=== PATIENT | male | born 1960 | race Caucasian/White ===

== ENCOUNTER → 2017-12-05 | Outpatient (CLI) | payer BC ==
--- NOTE | 2017-12-05 13:20 | XR ---
EXAMINATION TYPE: XR chest 2V DATE OF EXAM: 12/05/2017 COMPARISON: 06/22/2011 TECHNIQUE: PA and lateral views submitted. HISTORY: Productive cough FINDINGS: The lungs are clear and there is no pneumothorax, pleural effusion, or focal pneumonia. Hyperinflat ion noted. Mild hypertrophic change of the spine. No overt failure. IMPRESSION: 1. No acute process.
== END | disposition home or self-care (01) ==
LOC: RADXRYALE 13:01
PROVIDERS: ATTEND Internal Medicine
DX: J20.9 Acute bronchitis, unspecified (principal)
CPT/HCPCS: 71046

== ENCOUNTER → 2018-07-29 | Outpatient (CLI) | payer BC ==
--- NOTE | 2018-07-29 12:20 | XR ---
EXAMINATION TYPE: XR chest 2V DATE OF EXAM: 07/29/2018 COMPARISON: 12/05/2017 TECHNIQUE: PA and lateral views submitted. HISTORY: Routine physical FINDINGS: The lungs are clear and there is no pneumothorax, pleural effusion, or focal pneumonia. Mild hyperi nflation. No overt failure. IMPRESSION: 1. No acute process. Correlate for COPD
== END | disposition home or self-care (01) ==
LOC: RADXRYALE 11:49
PROVIDERS: ATTEND Internal Medicine
DX: R05 Cough (principal)
CPT/HCPCS: 71046

== ENCOUNTER 2021-12-18 18:34 | Observation (INO) | payer BC ==
[2021-12-18 19:13] LABS: Basophils % (A) 1 %; Eosinophils # (A) 0.3 k/uL (0-0.7); Eosinophils % (A) 3 %; HCT 43.4 % (39.0-53.0); HGB 14.6 gm/dL (13.0-17.5); Lymphocytes # (A) 2.7 k/uL (1.0-4.8); Lymphocytes % (A) 37 %; MCH 31.8 pg (25.0-35.0); MCHC 33.7 g/dL (31.0-37.0); MCV 94.3 fL (80.0-100.0); Mean Platelet Volume 7.8; Monocytes # (A) 0.4 k/uL (0-1.0); Monocytes % (A) 6 %; Neutrophils # (A) 3.7 k/uL (1.3-7.7); Neutrophils % (A) 51 %; Platelet Count 232 k/uL (150-450); RDW 12.2 % (11.5-15.5); WBC 7.3 k/uL (3.8-10.6)
[2021-12-18 19:23] LABS: Partial Thromboplastin Time 25.6 sec (22.0-30.0); Prothrombin Time 10.4 sec (9.0-12.0)
[2021-12-18 19:24] LABS: ALT 34 U/L (4-49); AST 41 U/L (17-59); African American GFR (CKD) >90 (>60 ml/min/1.73 sqM); Albumin 4.5 g/dL (3.5-5.0); Alkaline Phosphatase 74 U/L (38-126); Anion Gap 12 mmol/L; Blood Urea Nitrogen 16 mg/dL (9-20); Calcium 9.4 mg/dL (8.4-10.2); Carbon Dioxide 24 mmol/L (22-30); Chloride 104 mmol/L (98-107); Glucose 81 mg/dL (74-99); Magnesium 1.9 mg/dL (1.6-2.3); Non-African American GFR(CKD) 79 (>60 ml/min/1.73 sqM); Potassium 4.2 mmol/L (3.5-5.1); Sodium 140 mmol/L (137-145); Total Bilirubin 0.9 mg/dL (0.2-1.3); Total Protein 6.9 g/dL (6.3-8.2)
--- NOTE | 2021-12-18 19:54 | ED ---
Chest Pain HPI - General Chief Complaint: Chest Pain Stated Complaint: chest pain Time Seen by Provider: 12/18/21 19:38 Source: patient Mode of arrival: wheelchair Limitations: no limitations - History of Present Illness Initial Comments: This is a pleasant 61-year-old male who is a previous cigarette smoker, quitting many years ago. Patient presents to the emergency department today complaining of recurrent chest pain which he has had for what he states is years. He states that once a month he will get cramping tight feeling in his chest which radiates to his jaw. It lasts for about 20 minutes, unrelated to activity. No diaphoresis. No nausea, no shortness of breath. States it then seems to resolve on its own after he takes "3 or 4 aspirin. "Patient went to his primary care physician today for a general examination and informed the physician about this. For this reason he was sent here. Apparently she was concerned about the EKG done in the office. Patient has no chest pain currently. Patient states he did take 4 baby aspirin today prior to arrival. No headache, no fever or chills, no changes in vision or hearing, no sore throat or difficulty with speech, no neck pain, no shortness of breath, no abdominal pain, no nausea or vomiting, no changes in urination or bowel movements, no numbness or tingling, no extremity pain, no skin rashes or lesions. Past medical, surgical, social, and family history reviewed. Patient has not smoked cigarettes for years. Has a sister with a history of atrial fibrillation. Patient had a cardiac stress test about 10 years ago which was normal. No subsequent cardiac testing. - Related Data Allergies Allergy/AdvReac Type Severity Reaction Status Date / Time No Known Allergies Allergy Verified 12/18/21 18:41 Review of Systems ROS Statement: Those systems with pertinent positive or pertinent negative responses have been documented in the HPI. ROS Other: All systems not noted in ROS Statement are negative. EKG Findings - EKG Comments: EKG Findings:: EKG done at 1843 and by the ED attending physician reveals sinus rhythm with a rate of 64. Normal intervals. Normal axis. Normal QRS morphology. Poor R-wave progression. No evidence of acute ST or T-wave changes. No comparison study Past Medical History Past Medical History: No Reported History History of Any Multi-Drug Resistant Organisms: None Reported Additional Past Surgical History / Comment(s): nasal surgery Past Psychological History: No Psychological Hx Reported Smoking Status: Former smoker Past Alcohol Use History: Occasional Past Drug Use History: None Reported General Exam Limitations: no limitations General appearance: alert, in no apparent distress Head exam: Present: atraumatic, normocephalic, normal inspection Eye exam: Present: normal appearance, PERRL, EOMI. Absent: scleral icterus, conjunctival injection, periorbital swelling ENT exam: Present: normal exam, mucous membranes moist, normal external ear exam Neck exam: Present: normal inspection, full ROM. Absent: tenderness, meningismus, lymphadenopathy Respiratory exam: Present: normal lung sounds bilaterally. Absent: respiratory distress, wheezes, rales, rhonchi, stridor Cardiovascular Exam: Present: regular rate, normal rhythm, normal heart sounds. Absent: systolic murmur, diastolic murmur, rubs, gallop, clicks GI/Abdominal exam: Present: soft, normal bowel sounds. Absent: distended, tenderness, guarding, rebound, rigid Extremities exam: Present: normal inspection, full ROM, normal capillary refill. Absent: tenderness, pedal edema, joint swelling, calf tenderness Back exam: Present: normal inspection Neurological exam: Present: alert, oriented X3, CN II-XII intact Psychiatric exam: Present: normal affect, normal mood Skin exam: Present: warm, dry, intact, normal color. Absent: rash Course Vital Signs 12/18/21 12/18/21 18:38 18:41 Temperature 98.0 F 98.3 F Pulse Rate 64 60 Respiratory 20 17 Rate Blood Pressure 133/91 133/91 O2 Sat by Pulse 99 95 Oximetry - Reevaluation(s) Reevaluation #1: 12/18/21 20:49 Medical record is reviewed Asymptomatic Patient is informed of results and questions answered Patient in no distress Chest Pain MDM - Differential Diagnosis AMI, ACS, GERD, Esophageal Spasm - [facility] Heart score is 5. Patient asymptomatic at this point. Differential diagnosis includes gastrointestinal versus cardiac versus respiratory. However given the patient's chest pain radiating to the jaw lasting 20 minutes. Possibly of cardiac etiology is high. Possibly Prinzmetal's angina. Anxiety also within the differential. Patient will be admitted for cardiac rule out and cardiology consultation. Heart score is 5, discussed case with ED attending physician, Dr. Gayle The case was discussed in detail with ED attending physician. Presentation, findings, treatment plan discussed in detail. Scuffs with the admitting physician from [facility], Dr. Harper Admitted for chest pain rule out and cardiology consultation Disposition Clinical Impression: Chest pain Disposition: ADMITTED IP TO THIS HOSP Condition: Good Is patient prescribed a controlled substance at d/c from ED?: No Referrals: Myra Gupta MD [Primary Care Provider] - 1-2 days Time of Disposition: 19:54 Decision to Admit Reason: Admit from EC Decision Time: 19:54
[2021-12-18] MEDS ORDERED: ONDANSETRON 4 MG/2 ML VIAL IVP PRN (20:47)
[2021-12-18] MEDS ORDERED: ACETAMINOPHEN TAB 325 MG TAB PO PRN (20:47)
[2021-12-18] MEDS ORDERED: NALOXONE 0.4 MG/ML 1 ML VIAL IV PRN (20:47)
--- NOTE | 2021-12-18 21:06 | XR ---
EXAMINATION TYPE: XR chest 1V DATE OF EXAM: 12/18/2021 COMPARISON: 07/29/2018 HISTORY: Chest pain TECHNIQUE: Single view FINDINGS: Heart is normal. Lungs are clear of infiltrate. No heart failure. There are no hilar masses . There are chest leads. Bony thorax is intact. IMPRESSION: No active cardiopulmonary disease. Normal heart. No change.
[2021-12-19] MEDS ORDERED: ATORVASTATIN 80 MG TAB PO SCH (00:15)
--- NOTE | 2021-12-19 00:16 | P.HPIM ---
History of Present Illness H&P Date: 12/18/21 The patient is a 61-year-old male with no known PMH who presents to the emergency room with complaints of intermittent chest discomfort. Patient reports that over the past several years, he has been experiencing nearly once monthly substernal chest discomfort. No clear inciting factors noted, with pain 5 out of 10 on maximal intensity, radiating up to the right jaw, without associated symptoms, lasting for up to an hour at a time and then resolving spontaneously. Patient does occasionally use aspirin to alleviate his symptoms. The patient reports that he had his last episode yesterday evening prior to going to bed at this time he took multiple 81 mg aspirins which did alleviate her symptoms. He was seen at his PMDs office earlier today when an EKG was done and was reportedly abnormal and the patient was sent to the emergency room. Patient reports feeling his baseline at the time of interview. He denied any history of smoking. Does not have a history of type II DM, hypertension, or hyperlipidemia. Denied any family history of premature coronary artery disease. EKG in the emergency room revealed sinus rhythm with no ST-T wave changes noted as reviewed by me. Chest x-ray was unremarkable. Laboratory evaluation was also unremarkable with troponin less than 0.012. Review of systems: Pertinent positives and negatives as discussed in HPI, a complete review of systems was performed and all other systems are negative. Physical examination: General: non toxic, no distress, appears at stated age, obese Derm: no unusual rashes/lesions, warm Head: atraumatic, normocephalic, symmetric Eyes: EOMI, no lid lag, anicteric sclera, pupils equal round reactive to light ENT: Nose and ears atraumatic Neck: No cervical lymphadenopathy, trachea midline, supple Mouth: no lip lesion, mucus membranes moist Cardiovascular: S1S2 reg, no murmur, positive dorsalis pedis pulse bilateral, no edema Lungs: CTA bilateral, no rhonchi, no rales, no accessory muscle use Abdominal: soft, nontender to palpation, no guarding Ext: muscle strength 5 out of 5 in all 4 extremities grossly, no gross muscle atrophy, no contractures, Neuro: CN II-XI grossly intact, no gross focal neuro deficits Psych: Alert, oriented, appropriate affect Assessment/plan Chest pain with typical features -Cardiac monitoring -Trend troponin -Cardiology consult DVT prophylaxis -Heparin subcu The patient is admitted with an anticipated [] than 2 midnight stay for evaluation of []. CODE STATUS: Full Code Discussed with: Patient Anticipated discharge date: [] Anticipated discharge place: Home Past Medical History Past Medical History: No Reported History History of Any Multi-Drug Resistant Organisms: None Reported Additional Past Surgical History / Comment(s): nasal surgery Past Psychological History: No Psychological Hx Reported Smoking Status: Former smoker Past Alcohol Use History: Occasional Past Drug Use History: None Reported - Past Family History Mother Family Medical History: Hypertension Medications and Allergies Home Medications Medication Instructions Recorded Confirmed Type Cetirizine HCl [Zyrtec] 10 mg PO DAILY 12/18/21 12/18/21 History Fluticasone Nasal [place] [Flonase 1 spray EA NOSTRIL DAILY 12/18/21 12/18/21 History Nasal [place]] Allergies Allergy/AdvReac Type Severity Reaction Status Date / Time No Known Allergies Allergy Verified 12/18/21 20:56 Physical Exam Vitals: Vital Signs Temp Pulse Resp BP Pulse Ox 12/18/21 18:41 98.3 F 60 17 133/91 95 12/18/21 18:38 98.0 F 64 20 133/91 99 Intake and Output 12/18/21 12/18/21 12/19/21 14:59 22:59 06:59 Other: Weight 126.552 kg Results CBC & Chem 7: 12/18/21 19:03 12/18/21 19:03
[2021-12-19] MEDS ORDERED: ASPIRIN 325 MG TAB PO ONE (00:40)
[2021-12-19] MEDS: HEPARIN SODIUM,PORCINE/PF 5,000 UNIT/0.5 ML SYRINGE SQ SCH ×2 (01:25→07:24)
[2021-12-19 05:29] LABS: Basophils # (A) 0.1 k/uL (0-0.2); Basophils % (A) 1 %; Eosinophils # (A) 0.2 k/uL (0-0.7); Eosinophils % (A) 4 %; HCT 45.7 % (39.0-53.0); HGB 15.4 gm/dL (13.0-17.5); Lymphocytes # (A) 2.2 k/uL (1.0-4.8); Lymphocytes % (A) 35 %; MCH 32.3 pg (25.0-35.0); MCHC 33.7 g/dL (31.0-37.0); MCV 95.7 fL (80.0-100.0); Mean Platelet Volume 7.8; Monocytes # (A) 0.3 k/uL (0-1.0); Monocytes % (A) 5 %; Neutrophils # (A) 3.2 k/uL (1.3-7.7); Neutrophils % (A) 53 %; Platelet Count 228 k/uL (150-450); RBC 4.77 m/uL (4.30-5.90); WBC 6.1 k/uL (3.8-10.6)
[2021-12-19 06:08] LABS: African American GFR (CKD) >90 (>60 ml/min/1.73 sqM); Anion Gap 9 mmol/L; Blood Urea Nitrogen 15 mg/dL (9-20); Calcium 9.4 mg/dL (8.4-10.2); Carbon Dioxide 27 mmol/L (22-30); Chloride 105 mmol/L (98-107); Glucose 104 mg/dL (74-99); Magnesium 1.9 mg/dL (1.6-2.3); Non-African American GFR(CKD) 86 (>60 ml/min/1.73 sqM); Potassium 4.5 mmol/L (3.5-5.1); Sodium 141 mmol/L (137-145)
[2021-12-19 08:59] VITALS: RESP 20; TEMP 97.9
--- NOTE | 2021-12-19 10:14 | P.CRDCN ---
History of Present Illness History of present illness: HISTORY OF PRESENT ILLNESS: This is a 61-year-old male with a past medical history significant for seasonal allergies. Patient doesn't follow with a mate ship. We have been asked to see the patient in consultation for chest pain. Patient examined at the bedside. Patient states he was directed to come to the emergency room by his primary care physician secondary to chest pain. Patient reports he has been having chest pain for the past 15 years. He states he has the pain about once every other month. He states it is a sharp pain in the middle of his chest and lasted for about 20 minutes. He denies any shortness of breath. He states sometimes it does radiate into his jaw. He states the pain is not exertional and can happen when he is just relaxed and sitting there. He denies any palpitations. He states he usually takes a couple aspirin with a glass of water and his pain resolves. Patient reports that he had a cardiac evaluation about 10 years ago and was told everything is normal. * EKG reveals sinus mechanism with no signs of acute ischemia * Chest xray negative for acute process * Laboratory data: W BC 6.1. Hemoglobin 15.4. Platelet count 228. Sodium 141. Potassium 4.5. BUN 15. Creatinine 0.97. Magnesium 1.9. Troponin negative 3. * Current home cardiac medications include none REVIEW OF SYSTEMS: At the time of my exam: CONSTITUTIONAL: Denies fever or chills. HEENT: Denies blurred vision, vision changes, or eye pain. Denies hemoptysis CARDIOVASCULAR: Denies chest pain. Denies orthopnea. Denies PND. Denies palpitations RESPIRATORY: Denies shortness of breath. GASTROINTESTINAL: Denies abdominal pain. Denies nausea or vomiting. HEMATOLOGIC: Denies bleeding disorders. GENITOURINARY: Denies any blood in urine. SKIN: Denies pruitis. Denies rash. PHYSICAL EXAM: VITAL SIGNS: Reviewed. GENERAL: Well-developed in no acute distress. HEENT: Head is normocephalic. Pupils are equal, round. Sclerae anicteric. Mucous membranes of the mouth are moist. Neck supple. No JVD or thyromegaly LUNGS: Respirations even and unlabored. Lungs essentially clear to auscultation bilaterally. HEART: Regular rate and rhythm. S1 and S2 heard. ABDOMEN: Soft. Nondistended. Nontender. EXTREMITIES: Normal range of motion. No clubbing or cyanosis. Peripheral pulses intact. No lower extremity edema NEUROLOGIC: Awake and alert. Oriented x 3. ASSESSMENT: Chest pain, atypical, troponin negative 3 History of seasonal allergies PLAN: An acute coronary has been ruled out Obtain 2-D echo to assess cardiac structure and function Obtain lipid panel and hemoglobin A1c Patient to undergo stress echocardiogram today to assess for ischemia. If negative, the patient may be discharged home from a cardiac standpoint Nurse practitioner note has been reviewed by physician. Signing provider agrees with the documented findings, assessment, and plan of care. Past Medical History Past Medical History: No Reported History History of Any Multi-Drug Resistant Organisms: None Reported Additional Past Surgical History / Comment(s): nasal surgery Past Psychological History: No Psychological Hx Reported Smoking Status: Former smoker Past Alcohol Use History: Occasional Past Drug Use History: None Reported - Past Family History Mother Family Medical History: Hypertension Medications and Allergies Home Medications Medication Instructions Recorded Confirmed Type Cetirizine HCl [Zyrtec] 10 mg PO DAILY 12/18/21 12/18/21 History Fluticasone Nasal [place] [Flonase 1 spray EA NOSTRIL DAILY 12/18/21 12/18/21 History Nasal [place]] Allergies Allergy/AdvReac Type Severity Reaction Status Date / Time No Known Allergies Allergy Verified 12/18/21 20:56 Physical Exam Vitals: Vital Signs Temp Pulse Resp BP Pulse Ox 12/19/21 06:00 68 117/99 12/19/21 05:00 63 110/76 12/19/21 00:00 64 115/77 12/18/21 22:00 62 122/85 12/18/21 18:41 98.3 F 60 17 133/91 95 12/18/21 18:38 98.0 F 64 20 133/91 99 Intake and Output 12/18/21 12/19/21 12/19/21 22:59 06:59 14:59 Other: Weight 126.552 kg Results 12/19/21 05:05 12/19/21 05:05 Cardiac Enzymes 12/18/21 12/18/21 12/19/21 Range/Units 19:03 19:03 02:14 AST 41 (17-59) U/L Troponin I <0.012 <0.012 (0.000-0.034) ng/mL 12/19/21 Range/Units 05:05 AST (17-59) U/L Troponin I <0.012 (0.000-0.034) ng/mL Coagulation 12/18/21 Range/Units 19:03 PT 10.4 (9.0-12.0) sec APTT 25.6 (22.0-30.0) sec CBC 12/18/21 12/19/21 Range/Units 19:03 05:05 WBC 7.3 6.1 (3.8-10.6) k/uL RBC 4.60 4.77 (4.30-5.90) m/uL Hgb 14.6 15.4 (13.0-17.5) gm/dL Hct 43.4 45.7 (39.0-53.0) % Plt Count 232 228 (150-450) k/uL Comprehensive Metabolic Panel 12/18/21 12/19/21 Range/Units 19:03 05:05 Sodium 140 141 (137-145) mmol/L Potassium 4.2 4.5 (3.5-5.1) mmol/L Chloride 104 105 (98-107) mmol/L Carbon Dioxide 24 27 (22-30) mmol/L BUN 16 15 (9-20) mg/dL Creatinine 1.04 0.97 (0.66-1.25) mg/dL Glucose 81 104 H (74-99) mg/dL Calcium 9.4 9.4 (8.4-10.2) mg/dL AST 41 (17-59) U/L ALT 34 (4-49) U/L Alkaline Phosphatase 74 (38-126) U/L Total Protein 6.9 (6.3-8.2) g/dL Albumin 4.5 (3.5-5.0) g/dL Current Medications Generic Name Dose Route Start Last Admin Trade Name Freq PRN Reason Stop Dose Admin Acetaminophen 650 mg 12/18/21 20:47 Acetaminophen Tab 325 Mg Tab PO Q6HR PRN Mild Pain or Fever > 100.5 Atorvastatin Calcium 80 mg 12/19/21 00:15 12/19/21 01:32 Atorvastatin 80 Mg Tab PO Not Given HS PETERSON Heparin Sodium (Porcine) 5,000 unit 12/19/21 00:00 12/19/21 07:24 Heparin Sodium,Porcine/Pf 5,000 Unit/0.5 Ml Syringe SQ Not Given Q8HR PETERSON Naloxone HCl 0.2 mg 12/18/21 20:47 Naloxone 0.4 Mg/Ml 1 Ml Vial IV Q2M PRN Opioid Reversal Ondansetron HCl 4 mg 12/18/21 20:47 Ondansetron 4 Mg/2 Ml Vial IVP Q8HR PRN Nausea And Vomiting Intake and Output 12/18/21 12/19/21 12/19/21 22:59 06:59 14:59 Other: Weight 126.552 kg 12/19/21 05:05 12/19/21 05:05
[2021-12-19 12:51] VITALS: BP 97/46; PULSE 63
--- NOTE | 2021-12-19 13:04 | CA ---
Stress Echo Report Bandar Moraes Age: 61 Gender: M : 1960 Exam Date: 12/19/2021 11:37 Exam Location: [facility] Ht (in): 74 Wt (lb): 279 Ordering Physician: Anastasia Bravo Referring Physician: [id number]pper: Joceline Lira RDCS Technologist Procedure CPT: Indication: CP ICD-9 Codes: Rhythm: Patient History: Chest Pain Cardiac Medications: Medications in past 24 hours: Contrast: Stress Results Protocol: Onur Total dose(mL): Exercise Duration (min:sec): Max ST Depression (mm): Angina Score: Rodriguez Score: METS: 7.7 Resting HR: 79 Resting BP: 117 / 88 Peak HR: 156 Peak BP: 197 / 88 Max Predicted HR: 161 97 % Max Predicted HR Target HR: 137 Double Product: 15875 Stress Summary: BP Response: Reason for Termination: Reached target heart rate or work-load Cardiac Symptoms: Test terminated after reaching target heart rate (85% max predicted) ECG Analysis Resting ECG: Stress ECG: Arrhythmia: Echo Analysis Resting Echo: Peak Echo Analysis: MEASUREMENTS (Male/Female) Normal Values CONCLUSIONS Patient underwent exercise stress echo with a Onur protocol treadmill stress test. Patient exercised into Stage 2 for a total of 6 minutes 46 seconds reaching a total of 7.7 METS. Patient's maximum heart rate was 156 which represented 98 % age- predicted maximum heart rate. Stress EKG portion: At baseline patient's EKG showed normal sinus rhythm, normal axis, no significant ST-T wave abnormalities. At peak exercise, EKG showed rare PVCs, nonspecific 0.[address] depressions in the inferior and lateral leads. Stress echo portion: 2-D echocardiogram was performed in the parasternal long, personal short, apical 2 and apical four-chamber views at rest, peak exercise and in recovery. At baseline, echocardiogram showed left ventricular ejection fraction 55 % without wall motion abnormalities. With peak exercise, echocardiogram shows improvement in left ventricular ejection fraction, increase contractility, decrease in left ventricular end systolic dimension without wall motion abnormalities consistent with a normal response to exercise. Conclusions: 1. Normal EKG and echo response to exercise without evidence of inducible ischemia. 2. Good exercise capacity. 3. Normal left ventricular EF 55% Dr. Hayden Dumont DO (Electronically Signed) Final Date: 19 December 2021 13:03
[2021-12-19 15:16] LABS: Chol/HDL Ratio 4.18 Ratio; LDL Cholesterol,Calculated 102.2 mg/dL (0.0-131.0)
--- NOTE | 2021-12-19 16:56 | P.DS ---
Providers Date of admission: 12/19/21 00:26 Expected date of discharge: 12/19/21 Attending physician: Maribeth Harper MD Consults: 12/18/21 20:47 Consult Physician Urgent Consulting Provider: Leeann Dudley Consult Reason/Comments: chest pain Do you want consulting provider notified?: Yes Primary care physician: Myra Gupta [place] Hospital Course: Discharge Diagnosis: Chest pain, acute coronary event ruled out Hospital Course: Patient is a very pleasant 61-year-old male with no reported past medical history. He presented to the emergency department with a chief complaint of intermittent chest discomfort. Patient reported that over the past several years he has been experiencing intermittent chest pain/discomfort that typically presents while at rest. Patient reports this pain appears approximately 1 month and is best described as being a discomfort to his midsternal chest that radiates into his back. Patient denies any other accompanying symptoms including headache, lightheadedness, dizziness, palpitations, shortness of breath or experiencing any numbness/tingling/weakness/swelling in his extremities. Patient underwent evaluation in the emergency department. An EKG was completed revealing normal sinus rhythm at 64 bpm with no noted T wave or ST abnormality showing no signs of acute ischemia. CBC, CMP, and troponin were all unremarkable. Chest x-ray was negative for acute cardiopulmonary process. Patient was admitted under our services with consultation to cardiology. Troponins were trended and all negative at less than 0.0123 draws. Patient underwent an echocardiogram that is currently pending and a stress echo was completed. Stress echocardiogram revealing normal EKG and echo response to exercise without any evidence of inducible ischemia, good exercise capacity, and normal EF of 55%. Cardiology clearing patient from cardiac perspective for outpatient follow-up in their office. Patient is medically stable at this time and currently free from any chest pain or complaints. Patient instructed that he may follow up outpatient with cardiology in their office to follow up complete echocardiogram results as they're currently still pending. Vital signs are stable at this time and patient free from any current complaints. Hemoglobin A1c 5.2% and lipid profile unremarkable with the exception of low HDL of 37.80. Patient to follow up outpatient with PCP in 1-2 days and with cardiology in 1 week. Patient seen and examined at bedside. Vital signs reviewed and stable. General: Nontoxic, no distress and appears stated age. Derm: Skin warm and dry, normal coloration for ethnicity. Head: Atraumatic, normocephalic and symmetric. Eyes: EOMs intact, no lid lag, and anicteric sclera Mouth: no lip lesions, mucus membranes moist Cardiovascular: regular rate and rhythm with normal S1S2, no murmur, positive posterior tibial pulses bilaterally, and cap refill < 2 seconds. Lungs: Respirations even, regular, and unlabored on room air. Lungs CTA bilaterally, no rhonchi, no rales, no wheezing, and no accessory muscle usage. Abdominal: soft, nontender to palpation, no guarding, no appreciable organomegaly Ext: ROM intact. No gross muscle atrophy, no edema, no contractures Neuro: Speech clear, face symmetrical and CN II-XII grossly intact with no noted focal neuro deficits Psych: Alert and oriented to person, place, time, and situation. Appropriate and pleasant affect. A total of 31 minutes of time were spent preparing this complex discharge summary. Pt was discharged on 12/19/21 at 2:19 PM. Patient Condition at Discharge: Stable Plan - Discharge Summary Discharge Rx Participant: No New Discharge Prescriptions: Continue Cetirizine HCl [Zyrtec] 10 mg PO DAILY Fluticasone Nasal [place] [Flonase Nasal [place]] 1 spray EA NOSTRIL DAILY Discharge Medication List Cetirizine HCl [Zyrtec] 10 mg PO DAILY 12/18/21 [History] Fluticasone Nasal [place] [Flonase Nasal [place]] 1 spray EA NOSTRIL DAILY 12/18/21 [History] Follow up Appointment(s)/Referral(s): Hayden Dumont DO [STAFF PHYSICIAN] - 1 Week (call office when open to make follow up appointment) Myra Gupta MD [Primary Care Provider] - 1-2 days (call office when open to make follow up appointment) Patient Instructions/Handouts: Chest Pain (DC), Heart Healthy Diet (DC), Chest Wall Pain (GEN) Activity/Diet/Wound Care/Special Instructions: Activity: As tolerated. Take breaks as needed. Diet: Heart healthy and carb consistent diet. Avoid salts, or foods with hidden salts such as canned or boxed foods and frozen dinners. Extra salt makes your heart work harder and traps the fluid in your body for longer. Special Instructions: Take all of your medications as directed and remember to keep all of your doctor's appointments and follow-up as needed. Thank you for allowing us to participate in your care, it was truly a pleasure having you for our patient!!! Discharge Disposition: HOME SELF-CARE
--- NOTE | 2021-12-20 11:07 | CA ---
Transthoracic Echo Report Name: Bandar Moraes Age: 61 Gender: M : 1960 Exam Date: 12/19/2021 13:35 Exam Location: [facility] Ht (in): 74 Wt (lb): 279 Ordering Physician: Anastasia Bravo Attending/Referring Phys: [id number], [facility] [employer] Counselor Joceline Lira RDCS Procedure CPT: Indications: LV function Cardiac Hx: Technical Quality: Good Contrast 1: Total Dose (mL): Contrast 2: Total Dose (mL): MEASUREMENTS (Male / Female) Normal Values 2D ECHO LV Diastolic Diameter PLAX 5.3 cm 4.2 - 5.9 / 3.9 - 5.3 cm LV Systolic Diameter PLAX 4.0 cm IVS Diastolic Thickness 1.0 cm 0.6 - 1.0 / 0.6 - 0.9 cm LVPW Diastolic Thickness 1.3 cm 0.6 - 1.0 / 0.6 - 0.9 cm LV Relative Wall Thickness 0.4 RV Internal Dim ED PLAX 3.1 cm LV Diastolic Volume MOD BP 79.4 cm??? 67 - 155 / 56 - 104 cm??? LV Systolic Volume MOD BP 42.5 cm??? 22 - 58 / 19 - 49 cm??? LV Ejection Fraction MOD BP 46.5 % >= 55 % LV Diastolic Volume MOD 4C 67.4 cm??? LV Systolic Volume MOD 4C 45.9 cm??? LV Ejection Fraction MOD 4C 32.0 % LV Diastolic Length 4C 8.2 cm LV Systolic Length 4C 7.9 cm LV Diastolic Volume MOD 2C 83.8 cm??? LV Systolic Volume MOD 2C 39.4 cm??? LV Ejection Fraction MOD 2C 53.0 % LV Diastolic Length 2C 9.2 cm LV Systolic Length 2C 7.9 cm LA Volume 38.2 cm??? 18 - 58 / 22 - 52 cm??? M-MODE Aortic Root Diameter MM 3.4 cm LA Systolic Diameter MM 3.2 cm LA Ao Ratio MM 0.9 MV E Point Septal Separation 1.0 cm AV Cusp Separation MM 2.0 cm DOPPLER AV Peak Velocity 106.0 cm/s AV Peak Gradient 4.5 mmHg MV Area PHT 3.5 cm??? MR Peak Velocity 99.9 cm/s MR Peak Gradient 4.0 mmHg Mitral E Point Velocity 51.2 cm/s Mitral A Point Velocity 55.5 cm/s Mitral E to A Ratio 0.9 MV Deceleration Time 214.4 ms MV E' Velocity 6.2 cm/s Mitral E to MV E' Ratio 8.2 TR Peak Velocity 132.4 cm/s TR Peak Gradient 7.0 mmHg Right Ventricular Systolic Press 11.7 mmHg FINDINGS Left Ventricle Left ventricular ejection fraction is estimated at 55 %. Left ventricular cavity size normal. Left ventricular wall thickness normal. Right Ventricle The right ventricle is normal in size and function. Right Atrium The right atrium is normal in size. Left Atrium The left atrium is normal in size. Mitral Valve Structurally normal mitral valve without significant stenosis or prolapse. There is trace mitral regurgitation. Aortic Valve Structurally normal aortic valve without significant sclerosis or stenosis. There is no aortic regurgitation. Tricuspid Valve Structurally normal tricuspid valve without significant stenosis. Pulmonary artery systolic pressure is normal. Trace tricuspid regurgitation. Pulmonic Valve Structurally normal pulmonic valve without significant stenosis. There is no pulmonic regurgitation. Pericardium Normal pericardium without effusion. Aorta Normal aortic root dimension. CONCLUSIONS Left ventricular ejection fraction 55% Normal left ventricular thickness Trace mitral regurgitation RVSP 11 No pericardial effusion Previewed by: Dr. Hayden Dumont DO (Electronically Signed) Final Date: 20 December 2021 11:06
== END 2021-12-19 16:15 | disposition home or self-care (01) ==
LOC: EC 18:34 → 6NMEDSUR 12-19 00:26
PROVIDERS: ADMIT Internal Medicine; ATTEND Internal Medicine
DX: R07.89 Other chest pain (principal); R94.31 Abnormal electrocardiogram [ECG] [EKG]; J30.2 Other seasonal allergic rhinitis; Z87.891 Personal history of nicotine dependence; Z79.899 Other long term (current) drug therapy; Z82.49 Family history of ischemic heart disease and other diseases of the circulatory system
CPT/HCPCS: 99285; 36415; 93005; 93306; 93351; 80061; 80053; 80048; 83735 ×2; 84484 ×2; 85025 ×2; 85610; 85730; 83036; 71045; G0378

== ENCOUNTER → 2023-06-06 | Outpatient (CLI) | payer BC ==
--- NOTE | 2023-06-06 16:34 | MR ---
EXAMINATION TYPE: MR shoulder RT wo con DATE OF EXAM: 06/06/2023 COMPARISON: None HISTORY: Rt shoulder pain TECHNIQUE: Multiplanar, multisequence imaging of the right shoulder is performed without contrast. FINDINGS: The osseous structures are intact there is no bone contusion or fracture. There is mild to moderate osteoarthritic change of the AC joint and lateral downsloping acromion resu lts in mild to moderate shoulder impingement. There is moderate osteoarthritic change of the glenohumeral joint where there is moderate thinning of the articular cartilage and narrowing of the joint space. There is a complete full-thickness tear of the supraspinatus tendon with detachment from the humerus and retraction of the musculotendinous junction medially. There is marked thinning of the infraspinat us tendon with retraction of the musculotendinous junction. There is a probable small rim rent tear o f the infraspinatus as well. Subscapularis tendon is intact. The biceps tendon is normal in position within the bicipital groove and the biceps anchor is intact. The glenoid labrum is intact. IMPRESSION: 1. Degenerative changes of the glenohumeral joint and AC joint described above. 2. Full-thickness tear of the supraspinatus with retraction of the musculotendinous junction. 3. Marked thinning of the infraspinatus tendon with small rim rent tear and a degree of retraction of the musculotendinous junction.
== END | disposition home or self-care (01) ==
LOC: RADMRIMAIN 11:05
PROVIDERS: ATTEND Orthopaedic Surgery
DX: M19.011 Primary osteoarthritis, right shoulder (principal); M75.121 Complete rotator cuff tear or rupture of right shoulder, not specified as traumatic; M67.814 Other specified disorders of tendon, left shoulder

== ENCOUNTER → 2023-06-10 | Outpatient (CLI) | payer BC ==
--- NOTE | 2023-06-10 08:19 | CTL ---
EXAMINATION TYPE: CT Low Dose Lung DATE OF EXAM: 06/10/2023 7:15 AM CLINICAL INDICATION:Male, 63 years old with history of Z87.891 PERSONAL HISTORY OF NICOTINE DEPENDENC E; former smoker, pt quit smoking 15 years ago, pt smoked 1 pack daily x 33 years , history of tobacc o use. COMPARISON: 12/18/2021 TECHNIQUE: Multiple axial non-contrast scans were obtained from approximately the lung apices through the upper abdomen. Coronal and sagittal reformatted images were obtained. Low dose technique was uti lized. CT DLP: 175.7 mGycm, Automated exposure control for dose reduction was used. CT Contrast: Contrast used: None Oral contrast used: None FINDINGS: ======== Lack of intravenous contrast and low dose technique limits the evaluation of the vascular and soft ti ssue structures. LUNGS: No evidence of pulmonary fibrosis. No evidence of focal consolidation, pneumothorax or pleural effusion. Mild centrilobular emphysema changes are seen throughout the lungs. Nodules: RUL: None. RML: Intrafissural lymph node (series 5 image 38) RLL: None. KEIKO: None. LLL: None. AIRWAY: Patent and unremarkable. HEART: Size within normal limits. MEDIASTINUM: No gross evidence of adenopathy. VASCULATURE: No aortic aneurysm. MUSCULOSKELETAL: Mild disc degeneration changes are present throughout the thoracolumbar spine. SOFT TISSUES/LYMPH NODES: Unremarkable. LOWER NECK: No significant findings. UPPER ABDOMEN: No significant findings. IMPRESSION: 1. No clinically significant pulmonary nodules. 2. Mild emphysema. CT LUNG RAD AND CT CHEST RECOMMENDATION: Lung-Rad 2 Benign Appearance or Behavior: Continue annual sc reening with LDCT in 12 months. S Modifier (other clinically significant findings): S Recommend smoking cessation (if current smoker), or continuation of smoking cessation (if prior smoke r). Annual screening for lung cancer with low-dose computed tomography is recommended in adults ages 55 to 77 years who have a 30 pack-year smoking history and currently smoke or have quit within the pa st 15 years. Screening should be discontinued once a person has not smoked for 15 years or develops a health problem that substantially limits life expectancy or the ability or willingness to have curat keara lung surgery. Lung rads 2021 [email or web address]
== END | disposition home or self-care (01) ==
LOC: RADCTMAIN 06:42
PROVIDERS: ATTEND Internal Medicine
DX: Z12.2 Encounter for screening for malignant neoplasm of respiratory organs (principal); J43.2 Centrilobular emphysema; Z87.891 Personal history of nicotine dependence
CPT/HCPCS: 71271

== ENCOUNTER → 2023-06-27 | Outpatient (CLI) | payer BC ==
[2023-06-27 10:56] LABS: Basophils # (A) 0.05 X 10*3/uL (0.00-0.10); Basophils % (A) 0.9 %; Eosinophils # (A) 0.18 X 10*3/uL (0.04-0.35); Eosinophils % (A) 3.4 %; HCT 45.9 % (39.6-50.0); HGB 15.7 g/dL (13.0-17.0); Immature Grans, Automated 0 %; Lymphocytes # (A) 1.81 X 10*3/uL (0.90-5.00); Lymphocytes % (A) 33.8 %; MCH 32.4 pg (27.0-32.0); MCHC 34.2 g/dL (32.0-37.0); MCV 94.6 FL (80.0-97.0); Mean Platelet Volume 10.1 FL (9.5-12.2); Monocytes # (A) 0.55 X 10*3/uL (0.20-1.00); Monocytes % (A) 10.3 %; NRBC Per 100 WBC 0 X 10*3/uL (0.00-0.01); Neutrophils # (A) 2.76 X 10*3/uL (1.80-7.70); Neutrophils % (A) 51.6 %; Platelet Count 235 X 10*3/uL (140-440); RBC 4.85 X 10*6/uL (4.40-5.60); RDW 11.9 % (11.5-14.5); WBC 5.35 X 10*3/uL (4.50-10.00)
[2023-06-27 11:09] LABS: Anion Gap 9.4 mmol/L (4.00-12.00); Carbon Dioxide 24.6 mmol/L (21.6-31.8); Potassium 5.1 mmol/L (3.5-5.5)
== END | disposition home or self-care (01) ==
LOC: LABPAT 07:01
PROVIDERS: ATTEND Orthopaedic Surgery
DX: Z01.818 Encounter for other preprocedural examination (principal); M75.41 Impingement syndrome of right shoulder; R94.31 Abnormal electrocardiogram [ECG] [EKG]
CPT/HCPCS: 36415; 80051; 85025; 93005

== ENCOUNTER → 2023-07-17 | Day surgery (SDC) | payer BC ==
--- NOTE | 2023-07-16 13:33 | HP ---
HISTORY AND PHYSICAL DATE OF SURGERY: 07/17/2023. HISTORY OF PRESENT ILLNESS: Bandar Moraes is a 63-year-old gentleman seen with progressive right shoulder pain. Options for treatment were discussed with him. He elected to proceed with right shoulder arthroscopy. Consent was obtained. PAST MEDICAL HISTORY: Noncontributory. PAST SURGICAL HISTORY: Noncontributory. DAILY MEDICATIONS: Zyrtec. ALLERGIES: None. SOCIAL HISTORY: Denies tobacco use. PHYSICAL EVALUATION OF THE RIGHT SHOULDER: Flexion is 140 degrees. Abduction is 120 degrees. External rotation is 30 degrees with pain and weakness. Tenderness along the anterolateral acromion and rotator cuff insertion site. Impingement sign is positive at 90 degrees. Cross-body adduction sign is positive. Drop-arm sign is positive. Distal neurovascular exam is intact. IMAGING STUDIES: Right shoulder radiographs revealed a type 3 acromion, moderate acromioclavicular joint osteoarthritis and cystic changes of the greater tuberosity. An MRI of the right shoulder revealed a large rotator cuff tendon tear, impingement, and acromioclavicular joint osteoarthritis. IMPRESSION: 1. Right shoulder impingement with rotator cuff tear. 2. Right shoulder acromioclavicular joint osteoarthritis. PLAN: Right shoulder arthroscopy with subacromial decompression, rotator cuff repair, Akosua procedure and debridement. MMODL / IJN: [id number] /
[~2023-07-17] MED LIST: DEXAMETHASONE SOD PHOSPHATE 4 MG/ML 1 ML VIAL ONE; DICLOFENAC 0.1% OPHTH SOLN 2.5 ML BTL BOTH EYES SCH; GLYCOPYRROLATE 0.2 MG/ML 2 ML VIAL ONE; HYDROmorphone 0.5 MG/0.5 ML SYRINGE IVP PRN; LACTATED RINGERS 1,000 ML IV SCH; LIDOCAINE 1% INJ 10MG/ML (20 ML MDV) ONE; MIDAZOLAM 2 MG/2 ML VIAL IV PRN; MIDAZOLAM 2 MG/2 ML VIAL ONE; NEOSTIGMINE 1 MG/ML 10 ML VIAL ONE; PROPOFOL 10 MG/ML 20 ML VIAL IV ONE; ROCURONIUM 10 MG/ML (5 ML VIAL) IV ONE; ROPIVACAINE 5 MG/ML 30 ML VIAL ONE; SUCCINYLCHOLINE CHLORIDE 200 MG/10 ML VIAL IV ONE; fentaNYL (PF) 50 MCG/ML 2 ML AMP ONE
[2023-07-17] MEDS: LACTATED RINGERS 1,000 ML IV ONE ×2 (06:44→09:54)
[2023-07-17] MEDS: ONDANSETRON 4 MG/2 ML VIAL IVP ONE (06:45)
[2023-07-17] MEDS: DEXAMETHASONE SOD PHOSPHATE 4 MG/ML 1 ML VIAL IV ONE (06:45)
[2023-07-17] MEDS: LIDOCAINE 1% (10MG/ML) FOR IV START INTRADERMA PRN (06:45)
[2023-07-17] MEDS: MIDAZOLAM 2 MG/2 ML VIAL IVP ONE (06:54)
[2023-07-17] MEDS: fentaNYL (PF) 50 MCG/ML 2 ML AMP IVP ONE (06:54)
[2023-07-17] MEDS: ceFAZolin 3 GM in SODIUM CHLORIDE 0.9% 100 ML IVPB PRN (07:30)
--- NOTE | 2023-07-17 09:25 | P.OP ---
Date of Procedure: 07/17/23 Preoperative Diagnosis: Right shoulder impingement Postoperative Diagnosis: 1. Right shoulder rotator cuff tear 2. Right shoulder impingement 3. Right shoulder acromioclavicular joint osteoarthritis 4. Right shoulder partial long head biceps tendon tear Procedure(s) Performed: 1. Right shoulder arthroscopic rotator cuff repair 2. Right shoulder arthroscopic subacromial decompression 3. Right shoulder arthroscopic Akosua procedure 4. Right shoulder arthroscopic biceps tenotomy Implants: 4Arthrex 4.75 swivel lock anchors Anesthesia: GETA, regional (Interscalene block) Surgeon: Luis M Pruett Technical Analyst #1: Rigo Cosby Estimated Blood Loss (ml): 10 Pathology: none sent Condition: stable Disposition: PACU Indications for Procedure: 63-year-old patient seen with progressive right shoulder pain. After having treatment options discussed, he elected to proceed with arthroscopy. Operative Findings: See description of procedure Description of Procedure: Patient underwent an interscalene block by department of anesthesia. The patient was then taken to the operative suite. The patient underwent a general anesthetic by the department of anesthesia. The patient was placed into a lateral position and secured. There was appropriate padding of the bony prominence. Right shoulder was then prepped and draped in normal sterile orthopedic fashion. We placed the extremity in 10 pounds of longitudinal traction. A posterior incision was now made for a posterior working portal site. The trocar and cannula were inserted into the glenohumeral joint. Arthroscopy was initiated. Spinal needle was now inserted anteriorly, to ascertain the anterior working portal site. An incision was now made in that area, a trocar was inserted followed by a probe. There was substantial partial tearing long head biceps tendon. Labrum was stable. There were grade I chondromalacia changes along the inferior aspect of the humeral head. I performed arthroscopic biceps tenotomy. The area was probed and was found to be stable. Instruments were now removed from the glenohumeral joint. Utilizing the posterior working portal site, the trocar and cannula were inser lan into the subacromial space. Arthroscopy initiated. I made an incision 2 fingerbreadths lateral to the acromion. I introduced my trocar followed by my ArthroCare ablator. I now began ablating thick subacromial bursal tissue, which exposed the undersurface of the anterior acromion. There was diminished subacromial space. There was a very prominent anterior acromion. A motorized bur was introduced and a subacromial decompression was performed. I also excised some osteophytes off the inferior aspect of the distal clavicle. The AC joint was visualized and noted to be fairly arthritic. The motorized bur was introduced in the anterior portal site and a Akosua procedure was performed removing 8 mm of bone off the distal clavicle without difficulty, decompressing the AC joint nicely. I turned my attention to the rotator cuff. There was a 2.5 cm rotator cuff tear. I debrided the margins getting down to stable tendon tissue. I introduced my motorized bur and abraded the footprint area, getting some petechial bleeding. I now made an accessory portal site off the lateral aspect of the acromion. I punched to holes medial for medial row fixation with the assistance of Yadiel ALVAREZ carefully tapping the punch with a mallet as I held the punch and the camera. I now introduced both anchors into the pre- punched holes and Yadiel ALVAREZ tapped them with the mallet as I held anchors and the camera. Yadiel ALVAREZ now screwed the anchors in place a while I held the anchor guide and camera. All 8 limbs of suture were now passed through good bites of rotator cuff tendon. I now punched 2 holes for lateral row fixation again I held the punch and camera while Yadiel ALVAREZ used a mallet to tap in the punch. We now passed sutures through both anchors and individually I introduced the anchors into the pre-punch holes I held the anchor guide in position with one hand holding the camera with the other hand while Yadiel ALVAREZ tensioned the sutures and screwed in the anchors one at a time. All residual suture limbs were now clipped. We had good compression of the tendon along the entire footprint. Instruments now removed from the portal sites. All portal sites were approximated with nylon suture. Sterile dressings were applied followed by a shoulder immobilizer. Rigo ALVAREZ assisted in this complex case. The patient was awakened, transferred to a bed, and taken to recovery in stable condition.
--- NOTE | 2023-07-17 09:28 | P.ANPRN ---
Procedure Note - Anesthesia - Nerve Block Performed Right Interscalene Single Time Out Performed: Yes ([id number]) Location of Patient: PreOp Indication: Acute Post-Operative Pain, Dx/Pain Location (Left shoulder), Requested by Surgeon Specifically requested for management of pain by DrMichael: Luis M Pruett Sedation Type: Sedate with meaningful contact maintained Preparation: Sterile Prep Position: Supine Catheter: None Needle Types: Pajunk Needle Gauge: 21 Ultrasound used to visualize needle placement: Yes Ultrasound used to observe medication spread: Yes Injectate: 0.5% Ropivacaine (see comment for volume) (30 mL +4 mg of Decadron) Blood Aspirated: No Pain Paresthesia on Injection Noted: No Resistance on Injection: Normal Image Stored and Saved: Yes Events: Uneventful and Well Tolerated
[2023-07-17 09:42] VITALS: TEMP 97
[2023-07-17 11:34] VITALS: RESP 16
[2023-07-17 12:10] VITALS: BP 129/78; PULSE 63
== END | disposition home or self-care (01) ==
LOC: OR 05:40
PROVIDERS: ATTEND Orthopaedic Surgery
DX: M75.41 Impingement syndrome of right shoulder (principal); M75.101 Unspecified rotator cuff tear or rupture of right shoulder, not specified as traumatic; M19.011 Primary osteoarthritis, right shoulder; G89.18 Other acute postprocedural pain; Z87.891 Personal history of nicotine dependence; Z79.899 Other long term (current) drug therapy; Z98.890 Other specified postprocedural states
CPT/HCPCS: 64415; 29826; 29827; 29824; C1713 ×2; J2250; J0330; J1100; J2710; J0690; J2405; J2001; J3010; J2795; J2704